=== PATIENT | male | born 1950 | race Asian ===

== ENCOUNTER 2023-10-30 03:35 | Day surgery (SDC) | payer MEDICAID ==
[~2023-10-30] VITALS: Ht 162.6 cm; Wt 72.6 kg
[2023-10-30] MEDS ORDERED: VANCOMYCIN IV 1,000 MG in IV DEXTROSE 5% 250 ML IV ONE (04:00)
[2023-10-30] MEDS ORDERED: POTASSIUM CHLORIDE 20 MEQ POWDER PACKET NG SCH (04:00)
== END 2023-10-30 09:27 | disposition home or self-care (01) ==
LOC: DS 03:35
PROVIDERS: ATTEND Surgery
PROC: 0DJD8ZZ Inspection of Lower Intestinal Tract, Via Natural or Artificial Opening Endoscopic (ICD-10-PCS; principal; 2023-10-30)
DX: Z12.11 Encounter for screening for malignant neoplasm of colon (principal)
CPT/HCPCS: 36415; 45378; 74150; J3370; J7050; 93005